=== PATIENT | male | born 1960 | race Caucasian/White ===

== ENCOUNTER → 2017-06-18 | Emergency (ER) | payer OTHER ==
[~2017-06-18] VITALS: Ht 177.8 cm; Wt 89.8 kg
[~2017-06-18] MED LIST: ASPIRIN81 MG PO; CLARITIN10 M2 PO; GLUCOTROL XL5 MG PO; LIPITOR40 MG PO; METFORMIN HCL500 M2 PO; OMEPRAZOLE20 MG PO; PRINIVIL10 MG PO; PROPRANOLOL HCL20 MG PO
== END | disposition home or self-care (01) ==
LOC: ED 19:25
DX: I85.01 Esophageal varices with bleeding (principal); K76.9 Liver disease, unspecified; Z88.2 Allergy status to sulfonamides; Z79.82 Long term (current) use of aspirin; Z79.899 Other long term (current) drug therapy
CPT/HCPCS: 36430; 80053; 85025; 85610; 85730; 86850; 86900; 86901; 86920; 96365; 96368; 96375; 99291; J2354; J2405; J2765; J7030; P9016